=== PATIENT | male | born 1935 ===

== ENCOUNTER → 2018-06-16 | Outpatient (CLI) | payer MEDICARE, BC ==
[2018-06-16] MEDS: SOD CHLORIDE 0.9% 100 ML (12:11)
[2018-06-16] MEDS: IOHEXOL 100 ML (12:12)
== END | disposition home or self-care (01) ==
LOC: C/S 09:32
DX: R94.39 Abnormal result of other cardiovascular function study (principal)
CPT/HCPCS: 75571; 75574